=== PATIENT | male | born 1965 | race Caucasian/White ===

== ENCOUNTER 2016-10-29 18:17 | Emergency (ER) | payer SELFPAY ==
--- NOTE | ~2016-10-29 | CR63 ---
[facility] A Service of [facility] RADIOLOGY TEXT RESULTS PATIENT: GISEL MCBRIDE LOCATION: SED : 69 UNIT #: [id number] AGE: [address]: RUEL QUINTERO SEX: M ORDER DR: [id number] [address] [address] [id number] MR#: [id number] Acc #: [id number] NAME: GISEL MCBRIDE : 1965 SEX: M STUDY DATE/TIME: 10/29/2016 19:01 UNIT: SED ROOM: STUDY DESCRIPTION: CR Chest 2 View Attending Physician: Ruel Quintero Ordering Physician: Ruel Quintero Primary Care Physician: Primary Care Physician No MEDICAL IMAGING REPORT This report is preliminary unless electronic signature is present. EXAM Chest two views, 10/29/2016 COMPARISON Chest two views dated 03/04/2010. HISTORY Cough, bloody sputum, night sweats and congestion for 3 weeks. FINDINGS Two views of the chest were obtained. PA and lateral examination of the chest upright shows a good expansion of the parenchyma with a normal distribution of the pulmonary vascularity. There is no indication of congestion, effusion, infiltrate, tumor, or nodular density. The pleural reflections and diaphragmatic contours are normal. The cardiac silhouette and mediastinal anatomy is within normal limits. IMPRESSION Normal chest. Dictated by... Declan Magallon M.D. THIS IS AN ELECTRONICALLY VERIFIED REPORT Declan Magallon M.D. at 10/30/2016 2:25 PM CPR/ljd TD: 10/29/2016 22:05 [facility] A Service [facility] RADIOLOGY TEXT RESULTS PATIENT: GISEL MCBRIDE LOCATION: SED : [birth year] UNIT #: [id number] AGE: [address]: RUEL QUINTERO SEX: M ORDER DR: AMARA #: [id number] MEDICAL IMAGING REPORT Page 1 of 1
[~2016-10-29 18:17] MED LIST: AMOXICILLIN875 MG PO; FLEXERIL PO; NO MEDICATIONS; VICODIN 5/500 T1 TAB PO; VOLTAREN75 MG PO
== END 2016-10-29 20:29 | disposition home or self-care (01) ==
LOC: SED 18:17
DX: J40 Bronchitis, not specified as acute or chronic (principal); F17.200 Nicotine dependence, unspecified, uncomplicated
CPT/HCPCS: 71020; 94640; 99283